=== PATIENT | male | born 1955 | race Caucasian/White ===

== ENCOUNTER 2019-05-05 06:39 | Day surgery (SDC) | payer OTHER ==
[~2019-05-05] VITALS: Ht 175.3 cm; Wt 90.7 kg
[2019-05-05] MEDS ORDERED: LIDOCAINE 2% 100 MG/5 ML UJET TP ONE (07:54)
[2019-05-05] MEDS ORDERED: fentaNYL 0.05 MG/ML VIAL ONE (07:54)
[2019-05-05] MEDS ORDERED: MIDAZOLAM 2 MG/2 ML VIAL ONE (07:54)
[2019-05-05] MEDS ORDERED: MIDAZOLAM 2 MG/2 ML VIAL IVP ONE (08:16)
[2019-05-05] MEDS ORDERED: fentaNYL 0.05 MG/ML VIAL IVP ONE (08:18)
== END 2019-05-05 09:30 | disposition home or self-care (01) ==
LOC: MOR 06:39 → MMU 06:47 → MOR 09:30
PROVIDERS: ATTEND Internal Medicine Gastroenterology
DX: Z12.11 Encounter for screening for malignant neoplasm of colon (principal); E66.9 Obesity, unspecified; Z95.1 Presence of aortocoronary bypass graft; Z79.899 Other long term (current) drug therapy; Z68.29 Body mass index [BMI] 29.0-29.9, adult
CPT/HCPCS: 45378; J2250; J3010